=== PATIENT | female | born 1985 | race Caucasian/White ===

== ENCOUNTER 2018-02-17 12:57 | Emergency (ER) | payer SELFPAY ==
[2018-02-17 13:31] LABS: PLATELET COUNT, AUTOMATED 263 K/uL (150-450)
--- NOTE | 2018-02-17 13:35 | ER Report ---
History and Physical Time Seen By MD: 13:14 Hx. of Stated Complaint: SEEN AT EYE DOCTOR THIS AM. HAD ELEVATED BLOOD PRESSURE (178/148). STATES THAT SHE WAS TOLD THAT SHE HAS BLEEDING BEHIND HER RIGHT EYE, "BULGING VEINS" AND BLURRED VISION IN LEFT EYE. HPI/ROS CHIEF COMPLAINT: Hypertension HISTORY OF PRESENT ILLNESS: 32-year-old female patient presents to emergency room with complaint of hypertension. Patient states that she was seen at her eye doctor's office. He didn't evaluation and told her that she has thickening of the blood vessels in her eyes, she also has a small bleed in her right eye. He states that he is concerned about her hypertension and wanted her to be checked out immediately. Patient states she's not having any weakness, chest pain, dizziness, nausea or vomiting. Patient states she does have a headache on the left side. Patient states that she has a family history of hypertension and has had problems for quite some time. She states she's never actually seen somebody for. She denies having any fevers, chills, nausea, vomiting or diarrhea. REVIEW OF SYSTEMS: Respiratory: No cough, no dyspnea. Cardiovascular: No chest pain, no palpitations. Gastrointestinal: No vomiting, no abdominal pain. Musculoskeletal: No back pain. Allergies: Coded Allergies: ciprofloxacin (Verified Allergy, Severe, 02/17/18) Home Meds Active Scripts Labetalol Hcl (LABETALOL HCL) 100 Mg Tablet, 100 MG PO BID, #60 TAB Prov:ELVER MORRIS LISSET 02/17/18 Past Medical/Surgical History Patient has a past medical history of kidney stones. Patient has a surgical history of lithotripsy. Patient has a family medical history of hypertension. Reviewed Nurses Notes: Yes Constitutional Vital Sign - Last 24 Hours 02/17/18 02/17/18 02/17/18 02/17/18 13:06 13:06 13:07 14:00 Temp 98.7 Pulse 105 85 Resp 17 B/P (MAP) 204/160 (175) 204/160 217/148 (171) 192/151 (165) Pulse Ox 94 96 O2 Delivery Room Air 02/17/18 02/17/18 02/17/18 02/17/18 14:18 14:30 15:00 15:10 Pulse 82 77 78 B/P (MAP) 202/141 (161) 186/138 (154) 180/146 (157) Pulse Ox 95 95 99 02/17/18 02/17/18 02/17/18 02/17/18 15:20 15:30 15:40 15:50 Pulse 75 73 77 81 B/P (MAP) 175/126 (142) 156/136 (143) 173/132 (146) 168/131 (143) Pulse Ox 96 98 95 97 02/17/18 02/17/18 02/17/18 02/17/18 16:00 16:10 16:21 16:30 Pulse 80 77 B/P (MAP) 135/112 (120) 150/121 (131) 168/132 (144) 187/143 (158) Pulse Ox 98 96 02/17/18 02/17/18 02/17/18 02/17/18 16:40 16:50 17:00 17:10 Pulse 79 95 81 B/P (MAP) 174/125 (141) 184/145 (158) 185/138 (154) 197/139 (158) Pulse Ox 97 96 96 Physical Exam General Appearance: The patient is alert, has no immediate need for airway protection and no current signs of toxicity. Eyes: Pupils equal and round no injection. Extraocular movements intact. Respiratory: Chest is non tender, lungs are clear to auscultation. Cardiac: regular rate and rhythm Gastrointestinal: Abdomen is soft and non tender, no masses, bowel sounds normal. Musculoskeletal: Neck: Neck is supple and non tender. Extremities have full range of motion and are non tender. Skin: No rashes or lesions. DIFFERENTIAL DIAGNOSIS: After history and physical exam differential diagnosis was considered for hypertensive urgency, hypertensive emergency, uncontrolled hypertension, stroke. Medical Decision Making Data Points Result Diagram: 02/17/18 1317 02/17/18 1317 Laboratory Hematology Test 02/17/18 13:17 02/17/18 14:20 Red Blood Count 4.72 M/uL (4.17-5.56) Mean Corpuscular Volume 95.2 fL (80.0-96.0) Mean Corpuscular Hemoglobin 33.4 pg (26.0-33.0) Mean Corpuscular Hemoglobin Concent 35.1 g/dL (32.0-36.0) Red Cell Distribution Width 12.6 % (11.5-14.5) Mean Platelet Volume 8.2 fL (7.2-11.1) Neutrophils (%) (Auto) 59.0 % (39.4-72.5) Lymphocytes (%) (Auto) 25.0 % (17.6-49.6) Monocytes (%) (Auto) 10.2 % (4.1-12.4) Eosinophils (%) (Auto) 4.9 % (0.4-6.7) Basophils (%) (Auto) 0.9 % (0.3-1.4) Nucleated RBC Relative Count (auto) 0.0 /100WBC Neutrophils # (Auto) 4.0 K/uL (2.0-7.4) Lymphocytes # (Auto) 1.7 K/uL (1.3-3.6) Monocytes # (Auto) 0.7 K/uL (0.3-1.0) Eosinophils # (Auto) 0.3 K/uL (0.0-0.5) Basophils # (Auto) 0.1 K/uL (0.0-0.1) Nucleated RBC Absolute Count (auto) 0.00 K/uL Sodium Level 139 mmol/L (137-145) Potassium Level 4.1 mmol/L (3.5-5.0) Chloride Level 103 mmol/L (98-107) Carbon Dioxide Level 24 mmol/L (22-31) Blood Urea Nitrogen 12 mg/dl (7-18) Creatinine 0.90 mg/dl (0.52-1.04) Glomerular Filtration Rate Calc > 60.0 Random Glucose 93 mg/dl (75-110) Calcium Level 9.3 mg/dl (8.4-10.2) Total Bilirubin 0.7 mg/dl (0.2-1.3) Aspartate Amino Transf (AST/SGOT) 26 U/L (0-35) Alanine Aminotransferase (ALT/SGPT) 28 U/L (0-56) Alkaline Phosphatase 65 U/L (0-126) Troponin I < 0.012 ng/ml B-Type Natriuretic Peptide 52 pg/ml (0-100) Total Protein 7.2 gm/dl (6.3-8.2) Albumin 4.3 g/dl (3.5-5.0) Urine Color Straw Urine Clarity Clear Urine pH 6.0 pH (4.8-9.5) Urine Specific [place] 1.005 Urine Protein Negative mg/dL (NEGATIVE) Urine Glucose (UA) Negative mg/dL (NEGATIVE) Urine Ketones Negative mg/dL (NEGATIVE) Urine Blood Small (NEGATIVE) Urine Nitrite Negative (NEGATIVE) Urine Bilirubin Negative (NEGATIVE) Urine Urobilinogen Negative mg/dL (0.2-1.9) Urine Leukocyte Esterase Negative (NEGATIVE) Urine RBC None /HPF (0-2/HPF) Urine WBC <1 /HPF (0-5/HPF) Urine Squamous Epithelial Cells Many /LPF (</=FEW) Urine Bacteria Negative /HPF (NONE-FEW) Urine Mucus None /HPF (NONE-FEW) Chemistry Test 02/17/18 13:17 02/17/18 14:20 White Blood Count 6.8 k/uL (4.5-11.0) Red Blood Count 4.72 M/uL (4.17-5.56) Hemoglobin 15.8 g/dL (12.0-16.0) Hematocrit 45.0 % (34.0-47.0) Mean Corpuscular Volume 95.2 fL (80.0-96.0) Mean Corpuscular Hemoglobin 33.4 pg (26.0-33.0) Mean Corpuscular Hemoglobin Concent 35.1 g/dL (32.0-36.0) Red Cell Distribution Width 12.6 % (11.5-14.5) Platelet Count 263 K/uL (150-450) Mean Platelet Volume 8.2 fL (7.2-11.1) Neutrophils (%) (Auto) 59.0 % (39.4-72.5) Lymphocytes (%) (Auto) 25.0 % (17.6-49.6) Monocytes (%) (Auto) 10.2 % (4.1-12.4) Eosinophils (%) (Auto) 4.9 % (0.4-6.7) Basophils (%) (Auto) 0.9 % (0.3-1.4) Nucleated RBC Relative Count (auto) 0.0 /100WBC Neutrophils # (Auto) 4.0 K/uL (2.0-7.4) Lymphocytes # (Auto) 1.7 K/uL (1.3-3.6) Monocytes # (Auto) 0.7 K/uL (0.3-1.0) Eosinophils # (Auto) 0.3 K/uL (0.0-0.5) Basophils # (Auto) 0.1 K/uL (0.0-0.1) Nucleated RBC Absolute Count (auto) 0.00 K/uL Glomerular Filtration Rate Calc > 60.0 Calcium Level 9.3 mg/dl (8.4-10.2) Total Bilirubin 0.7 mg/dl (0.2-1.3) Aspartate Amino Transf (AST/SGOT) 26 U/L (0-35) Alanine Aminotransferase (ALT/SGPT) 28 U/L (0-56) Alkaline Phosphatase 65 U/L (0-126) Troponin I < 0.012 ng/ml B-Type Natriuretic Peptide 52 pg/ml (0-100) Total Protein 7.2 gm/dl (6.3-8.2) Albumin 4.3 g/dl (3.5-5.0) Urine Color Straw Urine Clarity Clear Urine pH 6.0 pH (4.8-9.5) Urine Specific [place] 1.005 Urine Protein Negative mg/dL (NEGATIVE) Urine Glucose (UA) Negative mg/dL (NEGATIVE) Urine Ketones Negative mg/dL (NEGATIVE) Urine Blood Small (NEGATIVE) Urine Nitrite Negative (NEGATIVE) Urine Bilirubin Negative (NEGATIVE) Urine Urobilinogen Negative mg/dL (0.2-1.9) Urine Leukocyte Esterase Negative (NEGATIVE) Urine RBC None /HPF (0-2/HPF) Urine WBC <1 /HPF (0-5/HPF) Urine Squamous Epithelial Cells Many /LPF (</=FEW) Urine Bacteria Negative /HPF (NONE-FEW) Urine Mucus None /HPF (NONE-FEW) Urinalysis Test 02/17/18 14:20 Urine Color Straw Urine Clarity Clear Urine pH 6.0 pH (4.8-9.5) Urine Specific [place] 1.005 Urine Protein Negative mg/dL (NEGATIVE) Urine Glucose (UA) Negative mg/dL (NEGATIVE) Urine Ketones Negative mg/dL (NEGATIVE) Urine Blood Small (NEGATIVE) Urine Nitrite Negative (NEGATIVE) Urine Bilirubin Negative (NEGATIVE) Urine Urobilinogen Negative mg/dL (0.2-1.9) Urine Leukocyte Esterase Negative (NEGATIVE) Urine RBC None /HPF (0-2/HPF) Urine WBC <1 /HPF (0-5/HPF) Urine Squamous Epithelial Cells Many /LPF (</=FEW) Urine Bacteria Negative /HPF (NONE-FEW) Urine Mucus None /HPF (NONE-FEW) EKG/Imaging EKG Interpretation 12 lead EKG: Rhythm: normal sinus rhythm with a ventricular rate of 80 bpm [place]: normal QRS: normal ST segments: normal Imaging ARTERIAL RENAL DUPLEX DOPPLER Indication: 32-year-old female with hypertension. Procedure: There has been satisfactory grayscale ultrasonic evaluation of the kidneys and bladder. Comparison: None. Findings: Right side: The right kidney measures 8.1 cm x 5.2 cm x 5.2 cm in its sagittal, transverse and AP dimensions. The right kidney the right kidney is significantly smaller than the left. There are scattered foci of increased echotexture throughout the right kidney that could represent nonobstructing calculi since is no hydronephrosis. The resistive indices range from 0.46-0.53. The waveforms show normal rise to peak systolic velocity. Velocities in the main right renal artery range from 61 to 78 cm/s. This is within normal limits. Left side: The left kidney measures 11.1 cm x 5.2 cm x 5.5 cm in its sagittal, transverse and AP dimensions. The left kidney shows no solid masses or velocities in the left renal artery range from 99 cm/sec to 146 cm/s. There is mild spectral broadening to suggest turbulence. There are no calculi. Typically a velocity of greater than 180 cm/s is suggestive of renal artery stenosis. Resistive indices in the left kidney range from 0.43-0.57 which is normal. Blood flow in the aorta is 99 cm/s. Bladder: Not imaged. IMPRESSION: 1. The right kidney is smaller than the left kidney. The significance or etiology of this finding is uncertain. 2. There is no hydronephrosis. 3. The right renal artery has normal velocity. The left renal artery has mildly increased velocity but it does not approach 180 cm/s which is typically what is needed to suggest renal artery stenosis. This is also on the side of the kidney that has normal size. 4. Findings of increased echo texture in the right kidney suggestive of stones without obstruction. 5. Note that a CT of the renal arteries might be of greater sensitivity in evaluating for renal artery stenosis or FMD in this patient. Report Dictated By: Jeet Garcia MD at 02/17/2018 4:39 PM Report E-Signed By: Jeet Garcia MD at 02/17/2018 4:46 PM 2 VIEWS CHEST INDICATION: High blood pressure, hypotension. Bleeding in the right eye. COMPARISON: None available FINDINGS: Cardiomediastinal silhouette and pulmonary vessels within normal limits. There is no focal infiltrate or lobar consolidation. There is no pneumothorax or pleural effusion. No nodule. Upper abdomen is unremarkable. No acute bony abnormality. IMPRESSION: 1. No acute cardiopulmonary process. Report Dictated By: Nelson Saucedo at 02/17/2018 1:54 PM Report E-Signed By: Nelson Saucedo at 02/17/2018 2:[address] OF THE BRAIN WITHOUT CONTRAST HISTORY: Hypertension. PROCEDURE: 3.0 mm contiguous axial sections were performed through the brain. Sagittal and coronal reformats were submitted. COMPARISON: None FINDINGS: BRAIN: Brain and intracranial structures: There is no mass lesion, hemorrhage or acute infarct. Orbits (included portions): Normal. Scalp: Normal. Skull: Normal. Paranasal sinuses and mastoid air cells (included portions): Mild mastoid mucosal thickening. IMPRESSION: No evidence of acute intracranial abnormality. One of the following dose optimization techniques was utilized in the performance of this exam: Automated exposure control; adjustment of the mA and/ or kV according to the patient's size; or use of an iterative reconstruction technique. Specific details can be referenced in the facility's radiology CT exam operational policy. Report Dictated By: Margi Polanco MD at 02/17/2018 2:12 PM Report E-Signed By: Margi Polanco MD at 02/17/2018 2:16 PM ED Course/Re-evaluation ED Course Patient is admitted and examined, history and physical were obtained. Differential diagnoses were considered. On examination lungs are clear, heart is regular, abdomen soft nontender. Patient does have an elevated blood pressure of 204/151. A CBC, CMP, chest x-ray, troponin, BNP, EKG, CT scan of head, urinalysis were obtained. Lab results were completely unremarkable. Chest x-ray and CT scan of the head were also negative. The EKG showed a normal sinus rhythm. I discussed the findings with Dr. Hearn, hospitalist and discussed admission. Dr. Hearn felt the patient could do well at home, treating her blood pressure with labetalol and oral labetalol at home and have her follow-up closely with a primary care provider. He also discussed doing a renal artery ultrasound. The renal artery ultrasound was done which was negative. I discussed the findings with the patient. We will go ahead and discharge patient home. During the time that she was here in the emergency room we did treat her with 20 mg of IV labetalol which did bring her blood pressure down to 135/112. We'll go ahead and discharge patient home with labetalol 100 mg twice a day. She is follow-up with primary care provider, preferably tomorrow or Wednesday. Patient is take medication as prescribed. The patient verbalized understanding and agreement with plan. She is return to emergency room if condition worsens, visual changes, chest pressure or persistent headache develops. Decision to Disposition Date: Feb 17, 2018 Decision to Disposition Time: 17:04 Depart Departure Latest Vital Signs Vital Signs Date Time Temp Pulse Resp B/P (MAP) Pulse Ox O2 Delivery O2 Flow Rate FiO2 02/17/18 17:10 197/139 (158) 02/17/18 17:00 81 96 02/17/18 13:06 98.7 17 Room Air Impression: Primary Impression: Hypertension Condition: Improved Disposition: HOME OR SELF-CARE New Scripts Labetalol Hcl (LABETALOL HCL) 100 Mg Tablet 100 MG PO BID, #60 TAB Prov: ELVER MORRIS 02/17/18 Patient Instructions: Hypertension (ED) Additional Instructions: Increase fluid intake. Get plenty of rest. You may continue with normal activity. Return to the ER if condition worsens, uncontrollable headache, worsening visual problems, chest pain, etc. Follow up with a primary care provider, call tomorrow to make an appointment. Limit salt in your diet. Problem Qualifiers Primary Impression: Hypertension Hypertension type: unspecified secondary hypertension Qualified Codes: I15.9 - Secondary hypertension, unspecified ELVER MORRIS Feb 17, 2018 13:35
--- NOTE | 2018-02-17 13:36 | EKG ---
FACILITY: [facility] PATIENT NAME: MARLENE HAWKINS : [id number] MR: [id number] V: [id number] EXAM DATE: ORDERING PHYSICIAN: ELVER MORRIS TECHNOLOGIST: ISATU Smith Reason : HYPERTENSION Blood Pressure : / mmHG Vent. Rate : 080 BPM Atrial Rate : 080 BPM P-R Int : 136 ms QRS Dur : 078 ms QT Int : 384 ms P-R-T Axes : 028 018 044 degrees QTc Int : 442 ms Normal sinus rhythm Normal ECG No previous ECGs available Confirmed by DEAN SCHAFER ([id number]) on 02/18/2018 6:27:46 AM Referred By: RASHAAD Confirmed By:DEAN SCHAFER
--- NOTE | 2018-02-17 14:03 | RADIOLOGY IMAGING REPORT ---
FACILITY: [facility] - [place] PATIENT NAME: Velia Littlejohn : 1985 MR: [id number] V: [id number] EXAM DATE: ORDERING PHYSICIAN: ELVER MORRIS TECHNOLOGIST: Location: [facility] - [place] Patient: Velia Littlejohn : 1985 Visit/Account:[id number] Date of Sevice: 02/17/2018 2 VIEWS CHEST INDICATION: High blood pressure, hypotension. Bleeding in the right eye. COMPARISON: None available FINDINGS: Cardiomediastinal silhouette and pulmonary vessels within normal limits. There is no focal infiltrate or lobar consolidation. There is no pneumothorax or pleural effusion. No nodule. Upper abdomen is unremarkable. No acute bony abnormality. IMPRESSION: 1. No acute cardiopulmonary process. Report Dictated By: Nelson Saucedo at 02/17/2018 1:54 PM Report E-Signed By: Nelson Saucedo at 02/17/2018 2:00 PM WSN:[id number]
[2018-02-17] MEDS ORDERED: LORazepam 2 MG/ML VIAL IVP ONE (14:10)
--- NOTE | 2018-02-17 14:21 | RADIOLOGY IMAGING REPORT ---
FACILITY: [facility] - [place], [place] PATIENT NAME: Velia Littlejohn : 1985 MR: [id number] V: [id number] EXAM DATE: ORDERING PHYSICIAN: ELVER MORRIS TECHNOLOGIST: Location: [facility] Patient: Velia Littlejohn : 1985 Visit/Account:[id number] Date of Sevice: 02/17/2018 CT OF THE BRAIN WITHOUT CONTRAST HISTORY: Hypertension. PROCEDURE: 3.0 mm contiguous axial sections were performed through the brain. Sagittal and coronal r eformats were submitted. COMPARISON: None FINDINGS: BRAIN: Brain and intracranial structures: There is no mass lesion, hemorrhage or acute infarct. Orbits (included portions): Normal. Scalp: Normal. Skull: Normal. Paranasal sinuses and mastoid air cells (included portions): Mild mastoid mucosal thickening. IMPRESSION: No evidence of acute intracranial abnormality. One of the following dose optimization techniques was utilized in the performance of this exam: Autom ated exposure control; adjustment of the mA and/or kV according to the patient's size; or use of an i terative reconstruction technique. Specific details can be referenced in the facility's radiology C T exam operational policy. Report Dictated By: Margi Polanco MD at 02/17/2018 2:12 PM Report E-Signed By: Margi Polanco MD at 02/17/2018 2:16 PM WSN:[id number]
[2018-02-17] MEDS ORDERED: LABETALOL HCL 100 MG/20ML VIAL IVP ONE (14:25)
--- NOTE | 2018-02-17 16:50 | RADIOLOGY IMAGING REPORT ---
FACILITY: [facility] - [place] PATIENT NAME: Velia Littlejohn : 1985 MR: [id number] V: [id number] EXAM DATE: ORDERING PHYSICIAN: ELVER MORRIS TECHNOLOGIST: Location: [facility] Patient: Velia Littlejohn : 1985 Visit/Account:[id number] Date of Sevice: 02/17/2018 ARTERIAL RENAL DUPLEX DOPPLER Indication: 32-year-old female with hypertension. Procedure: There has been satisfactory grayscale ultrasonic evaluation of the kidneys and bladder. Comparison: None. Findings: Right side: The right kidney measures 8.1 cm x 5.2 cm x 5.2 cm in its sagittal, transverse and AP dimensions. The right kidney the right kidney is significantly smaller than the left. There are scattered foci of i ncreased echotexture throughout the right kidney that could represent nonobstructing calculi since is no hydronephrosis. The resistive indices range from 0.46-0.53. The waveforms show normal rise to peak systolic velocity . Velocities in the main right renal artery range from 61 to 78 cm/s. This is within normal limits. Left side: The left kidney measures 11.1 cm x 5.2 cm x 5.5 cm in its sagittal, transverse and AP dimensions. The left kidney shows no solid masses or velocities in the left renal artery range from 99 cm/sec to 14 6 cm/s. There is mild spectral broadening to suggest turbulence. There are no calculi. Typically a velocity of greater than 180 cm/s is suggestive of renal artery stenosis. Resistive indices in the left kidney range from 0.43-0.57 which is normal. Blood flow in the aorta is 99 cm/s. Bladder: Not imaged. IMPRESSION: 1. The right kidney is smaller than the left kidney. The significance or etiology of th is finding is uncertain. 2. There is no hydronephrosis. 3. The right renal artery has normal velocity. The left renal artery has mildly increased velocity but it does not approach 180 cm/s which is typically what is needed to suggest renal artery stenosis. This is also on the side of the kidney that has normal size. 4. Findings of increased echo texture in the right kidney suggestive of stones without obstruction. 5. Note that a CT of the renal arteries might be of greater sensitivity in evaluating for renal rupesh ry stenosis or FMD in this patient. Report Dictated By: Jeet Garcia MD at 02/17/2018 4:39 PM Report E-Signed By: Jeet Garcia MD at 02/17/2018 4:46 PM WSN:[id number]
[2018-02-17] MEDS ORDERED: LABE100T28 PO (17:02)
[2018-02-17] MEDS ORDERED: LABETALOL HCL 100 MG TAB PO ONE (17:05)
[2018-02-17 17:10] VITALS: BP 197/139
[2018-02-18] MEDS ORDERED: Work release (10:49)
[2018-02-18] MEDS ORDERED: [UNRECOGNIZED DRUG - OTHER] (10:49)
[2018-02-18] MEDS ORDERED: HYDR-2966 PO (10:51)
== END 2018-02-17 17:15 | disposition home or self-care (01) ==
LOC: ER 13:03
DX: I15.9 Secondary hypertension, unspecified (principal)
CPT/HCPCS: 70450; 71046; 81001; 83880; 84484; 85025; 93005; 93975; 96374; 96375; 99284; J2060; J3490; 82040; 82247; 82310; 82374; 82435; 82565; 82947; 84075; 84132; 84155; 84295; 84450; 84460; 84520

== ENCOUNTER → 2018-02-18 | Outpatient (CLI) | payer SELFPAY ==
[~2018-02-18] MED LIST: HYDR-2966 PO; LABE100T28 PO; Work release; [UNRECOGNIZED DRUG - OTHER]
== END ==
LOC: LAB 10:51
PROVIDERS: ATTEND Nurse Practitioner Family
DX: I15.8 Other secondary hypertension (principal)
CPT/HCPCS: 36415; 84443

== ENCOUNTER → 2018-03-28 | Outpatient (CLI) | payer SELFPAY ==
[~2018-03-28] MED LIST changes: +DEX1 PO; +LISI-374 PO; +LISI20TA29 PO
== END ==
LOC: LAB 08:01
PROVIDERS: ATTEND Emergency Medicine
DX: I10 Essential (primary) hypertension (principal); N20.0 Calculus of kidney
CPT/HCPCS: 36415; 82088; 82310; 82374; 82435; 82465; 82533; 82565; 82947; 83718; 83835; 83970; 84132; 84295; 84478; 84520

== ENCOUNTER → 2018-04-15 | Outpatient (CLI) | payer SELFPAY | LOC: LAB 10:08 | PROVIDERS: ATTEND Emergency Medicine | DX: I10 Essential (primary) hypertension (principal); D75.89 Other specified diseases of blood and blood-forming organs | CPT/HCPCS: 36415; 82088; 82310; 82374; 82435; 82565; 82607; 82746; 82947; 83090; 83921; 84132; 84244; 84295; 84520 ==